=== PATIENT | female | born 1985 | race American Indian/Alaskan Native ===

== ENCOUNTER 2019-06-19 19:48 | Emergency (ER) | payer SELFPAY ==
[2019-06-19 19:55] VITALS: BP 148/91
[2019-06-19] MEDS ORDERED: TETANUS,DIPH,PERTUSS(ACELL) VACCINE 0.5 ML SYRINGE IM ONE (19:55)
--- NOTE | 2019-06-19 19:59 | Emergency Department Report ---
ED Animal Bite HPI - General Chief Complaint: Animal Bite Stated Complaint: DOG BITE RIGHT HAND Time Seen by Provider: 06/19/19 19:54 Source: patient Mode of arrival: Ambulatory Limitations: No Limitations - History of Present Illness Initial Comments: 34-year-old -[place] female presents to the emergency room for right hand dog bite this afternoon. Patient states is her dog last shots for the dog was last year of March. Patient reports dog is up-to-date on rabies and vaccines. Patient reports she has not had her tetanus shot in over 5 years. Patient reports that the dog was not provoked. Patient denies any past medical history has no known drug allergies. MD Complaint: animal bite -: This evening Location: other (Right hand) Right: Hand Animal: dog Animal Control Notified: No Description: household pet Mechanism: bite Severity scale (0 -10): 7 Context: unprovoked Associated Symptoms: erythema. denies: discharge from wound, bleeding Treatments Prior to Arrival: irrigation - Related Data Patient Tetanus UTD: No Previous Rx's Medication Instructions Recorded Last Taken Type Ibuprofen [Motrin 800 MG tab] 800 mg PO Q8HR PRN #15 tablet 01/04/15 Unknown Rx Amoxicillin/K Clav Tab [Augmentin 1 tab PO Q12HR 10 Days #20 tab 06/19/19 Unknown Rx 875 mg] Allergies Allergy/AdvReac Type Severity Reaction Status Date / Time No Known Allergies Allergy Unverified 01/04/15 01:03 ED Review of Systems ROS: Stated complaint: DOG BITE RIGHT HAND Other details as noted in HPI Comment: All other systems reviewed and negative ED Past Medical Hx - Past Medical History Previous Medical History?: No - Surgical History Past Surgical History?: No - Social History Smoking Status: Never Smoker Substance Use Type: None - Medications Home Medications: Home Medications Medication Instructions Recorded Confirmed Last Taken Type Ibuprofen [Motrin 800 MG tab] 800 mg PO Q8HR PRN #15 tablet 01/04/15 Unknown Rx Amoxicillin/K Clav Tab [Augmentin 1 tab PO Q12HR 10 Days #20 tab 06/19/19 Unknown Rx 875 mg] ED Physical Exam - General Limitations: No Limitations General appearance: alert, in no apparent distress - Head Head exam: Present: atraumatic, normocephalic - Eye Eye exam: Present: normal appearance - ENT ENT exam: Present: mucous membranes moist - Neck Neck exam: Present: normal inspection, full ROM - Expanded Upper Extremity Exam Right Hand Wrist exam: Present: full ROM, tenderness, swelling (mild), erythema (mild) Neuro motor exam: Present: wrist extension intact, thumb opposition intact, thumb IP flexion intact, thumb adduction intact, fingers 2-5 abduction intact Vascular: Present: vascular compromise - Back Exam Back exam: Present: normal inspection - Neurological Exam Neurological exam: Present: alert, oriented X3, normal gait - Psychiatric Psychiatric exam: Present: normal affect, normal mood - Skin Skin exam: Present: warm, dry, intact, normal color. Absent: rash ED Course Vital Signs 06/19/19 19:52 Temperature 98.7 F Pulse Rate 89 Respiratory 18 Rate Blood Pressure 148/91 O2 Sat by Pulse 98 Oximetry Critical care attestation.: If time is entered above; I have spent that time in minutes in the direct care of this critically ill patient, excluding procedure time. ED Disposition Clinical Impression: Dog bite of hand without complication Disposition: DC-01 TO HOME OR SELFCARE Is pt being admited?: No Does the pt Need Aspirin: No Condition: Stable Instructions: Animal Bite (ED) Additional Instructions: Complete antibiotics as prescribed. Keep wound clean and dry. Take Tylenol or ibuprofen as needed for pain management. Follow-up with your primary care provider if you have any further concerns. Prescriptions: Amoxicillin/K Clav Tab [Augmentin 875 mg] 1 tab PO Q12HR 10 Days #20 tab Referrals: STEPHANE US MD [Staff Physician] - 3-5 Days Forms: Work/School Release Form(ED) ED Medical Decision Making - Medical Decision Making 34-year-old -[place] female presents to the emergency room for right hand dog bite this afternoon. Patient states is her dog last shots for the dog was last year of March. Patient reports dog is up-to-date on rabies and v accines. Patient reports she has not had her tetanus shot in over 5 years. Patient reports that the dog was not provoked. Patient denies any past medical history has no known drug allergies. Patient will be given a Boostix and placed on Augmentin 875 p.o. twice daily for 10 days. Patient does not need x-ray of hand as she has full range of motion minimal swelling no deep puncture wound.
== END 2019-06-19 20:36 | disposition home or self-care (01) ==
LOC: ED 19:48
DX: S61.451A Open bite of right hand, initial encounter (principal); Z79.1 Long term (current) use of non-steroidal anti-inflammatories (NSAID); Z79.2 Long term (current) use of antibiotics; W54.0XXA Bitten by dog, initial encounter; Y93.89 Activity, other specified; Y92.89 Other specified places as the place of occurrence of the external cause; Y99.8 Other external cause status
CPT/HCPCS: 90471; 90715; 99282